=== PATIENT | female | born 1995 | race Asian ===

== ENCOUNTER 2018-07-11 15:26 | Emergency (ER) | payer MEDICAID ==
[~2018-07-11] VITALS: Ht 154.9 cm; Wt 59.1 kg
[2018-07-11] MEDS ORDERED: DIPH25CA85 PO (15:30)
[2018-07-11] MEDS ORDERED: HydrOXYzine HCL 25 MG TABLET PO ONE (17:30)
[2018-07-11 17:56] VITALS: BP 121/68
== END 2018-07-11 17:59 | disposition home or self-care (01) ==
LOC: EMS 15:27
DX: B35.4 Tinea corporis (principal)
CPT/HCPCS: 99283